=== PATIENT | male | born 1945 | race Caucasian/White ===

== ENCOUNTER 2019-07-03 17:05 | Inpatient (IN) | payer MEDICARE ==
[2019-07-03 18:06] LABS: Troponin I 1.119 ng/mL (< 0.028)
[2019-07-03] MEDS ORDERED: Fentanyl 100 MCG/2 ML VIAL ONE (19:22)
[2019-07-03] MEDS ORDERED: Ondansetron PF 4 MG/2 ML Vial IVP PRN (21:48)
[2019-07-03] MEDS ORDERED: Ondansetron ODT 4 MG TAB SL PRN (21:48)
[2019-07-03] MEDS ORDERED: Acetaminophen 325 MG TAB PO PRN (21:48)
[2019-07-03 21:52] LABS: CKMB 16.8 ng/mL (0-6.6)
[2019-07-03 23:01] VITALS: BMI 26.2
[2019-07-03] MEDS ORDERED: Sodium Chloride 0.9% 1,000 ML IV SCH (23:40)
[2019-07-03] MEDS ORDERED: HYDROcodone/Acetaminophen 5/325 mg Tablet PO PRN (23:40)
[2019-07-03] MEDS ORDERED: Nitroglycerin 0.4 MG TAB (25 Tab Bottle) SL PRN (23:40)
[2019-07-03] MEDS ORDERED: Famotidine 20 MG TAB PO SCH (23:40)
[2019-07-03] MEDS ORDERED: Morphine 2 MG/ML SYRINGE SLOW IVP PRN (23:40)
[2019-07-03] MEDS ORDERED: Atorvastatin Calcium 40 MG TAB PO SCH (23:45)
--- NOTE | 2019-07-04 01:34 | PDOC.EVN ---
Event Note - Event Note Event Note: RN called with troponin 4.6. 90 mg Lovenox already given at [place]
[2019-07-04] MEDS ORDERED: Enoxaparin Sodium 80 MG/0.8 ML SYRINGE SC SCH (01:45)
--- NOTE | 2019-07-04 02:21 | HP ---
PRIMARY CARE PHYSICIAN: Dr. Eastman. CHIEF COMPLAINT: Chest pain. HISTORY OF PRESENT ILLNESS: Mr. Mckeon is a very pleasant 73-year-old gentleman, who has a history of hypertension. He also has a history of hyperlipidemia. He says that in the past couple of days, he has been having problems with chest pains off and on as well as indigestion. He says that he was recently diagnosed with stones in the gallbladder and thought that his symptoms could be related to this. He had surgery scheduled for this past Sunday, but unfortunately, he had a family tragedy. His daughter in a motor vehicle accident and says everything had been "crazy" since then. He says that he was not able to make this appointment and since then, he has been having the chest pains off and on and said this time it was a bit different. He woke up with the pain. He says that it was like a tight feeling and radiated down both of his arms, which was different from before. He also noticed some mild dyspnea, but there was no nausea, no vomiting, no diaphoresis. He says he tried to drink some coffee to make it go away, but it did not, and as a result, he talked to his and they decided he should come to the hospital. He went to the emergency room in [place], where it was noted that his troponin was slightly elevated. They did do a CT scan, which was negative for PE. It did show that he has an abdominal aortic aneurysm, but it has been stable in appearance and he is being sent for further evaluation. REVIEW OF SYSTEMS: CONSTITUTIONAL: No fevers, no chills, no night sweats. No weight loss. HEENT: No headaches. No dizziness. No visual changes. No sore throat, rhinorrhea, neck pain, or adenopathy. PULMONARY: No hemoptysis. No cough. No wheezing. CARDIOVASCULAR: As per history of present illness with no PND. No orthopnea. No palpitations. GASTROINTESTINAL: He has been having some epigastric pain off and on radiating to his back and shoulder blades, but he attributes this to the cholelithiasis. GENITOURINARY: No urinary frequency or hematuria. No hesitancy. NEUROLOGIC: No focal weakness or numbness. No seizures. PSYCHIATRIC: No symptoms of anxiety or depression. SKIN AND INTEGUMENT: No skin changes. No rash. He does have some normal grief reaction. PAST MEDICAL HISTORY: Significant for hypertension, hyperlipidemia, history of colon cancer. PAST SURGICAL HISTORY: He has had an ileostomy and then ileostomy takedown. ALLERGIES: NO KNOWN DRUG ALLERGIES. SOCIAL HISTORY: He is . He is a full code. He is a former smoker, but quit at least 30 years ago. Occasionally drinks. FAMILY HISTORY: Significant for no history of any heart disease status. CURRENT MEDICATIONS: He said he recently took a Z-Rickey and is on a Medrol Dosepak and says he takes a little medicine for blood pressure, but it is not listed. PHYSICAL EXAMINATION: GENERAL: He is alert and oriented X4. He appears to be in no acute distress. He is well developed and well nourished. VITAL SIGNS: Blood pressure is 125/77, heart rate 66, respiratory rate of 18, and he is afebrile. HEENT: Pupils are equal, round, and reactive. Extraocular muscles are intact. His sclerae anicteric. Throat, no erythema, no exudates. NECK: No adenopathy. No bruits. LUNGS: Clear to auscultation. There is no wheezing, no rales, no rhonchi. CARDIOVASCULAR: He has a normal S1, S2. There is no S3 or S4. No murmurs, clicks, no rubs. ABDOMEN: Obese. It is soft. He did have some mild right upper quadrant tenderness, but there is no rebound, no guarding, no organomegaly. EXTREMITIES: There is no clubbing or cyanosis. No edema. No calf tenderness. No joint effusions. NEUROLOGIC: His cranial nerves are intact. His muscle strength is 5/5 in both his upper and lower extremities. SKIN AND INTEGUMENT: No skin changes. No rash. LABORATORY DATA AND IMAGING: EKG, it was from a rhythm strip from the EMS as I could not find the EKG from [place], but it was sinus rhythm, the rate was in the 70s. He had some T-wave inversions in II, and aVL. Otherwise, there was no other ST wave changes. Troponin was 1.1. The chemistry panel from [place] were also reviewed. Creatinine was slightly elevated. He had a CT angio of the chest, which was negative for pulmonary embolism. It did show an infrarenal abdominal aortic aneurysm measuring approximately 4 x 5 x 7 cm, which was reported to be unchanged. There was also noted bilateral renal artery stenosis. Otherwise, the other imaging is on CD. ASSESSMENT: This is a 73-year-old gentleman, who presents with; 1. Chest pain as well as pain radiating into his arms. He has an elevated troponin as well as some EKG changes, which are suspicious for a possible acute coronary syndrome or even crc-SA-bfidgabks myocardial infarction. He will be admitted to telemetry. We will continue to trend his cardiac enzymes, place him on aspirin, nitrates, and beta malgorzata if tolerated. Consult Cardiology. Get an echocardiogram. 2. Hypertension. Blood pressure is currently well controlled. We will have p.r.n. medications available as needed. 3. Cholelithiasis. At this point, the patient does not have any findings suggestive of acute cholecystitis. He does have some biliary colic, but the cardiac condition takes precedence and this will be deferred until acute coronary syndrome has been evaluated. Job ID: [id number]
[2019-07-04 05:36] LABS: #Lymphocytes 1.5 thou/uL (1.20-3.40); #Neutrophils 6.4 thou/uL (1.40-6.50); %Basophils 0.5 % (0.0-1.0); %Eosinophils 0.4 % (0.0-10.0); %Lymphocytes 16.6 % (21.0-51.0); %Monocytes 11.3 % (0.0-10.0); %Neutrophils 71.3 % (42.0-75.0); Hemoglobin 12.9 g/dL (14.0-18.0); Mean Corpuscular HGB CONC 33.7 g/dL (32.0-36.0); Mean Corpuscular Hemoglobin 30.2 pg (27.0-31.0); Mean Corpuscular Volume 89.6 fL (78.0-98.0); Mean Platelet Volume 7.2 fL (7.4-10.4); Platelet Count 278 thou/uL (130-400); RBC Distribution Width 11.7 % (11.5-14.5); Red Blood Cell (RBC) Count 4.26 mill/uL (4.70-6.10)
[2019-07-04 06:02] LABS: Anion Gap 12 mmol/L (10-20); BUN (Urea Nitrogen) 24 mg/dL (8.4-25.7); Calc. Creatinine Clearance 58 mL/min (70-130); Calcium 9.2 mg/dL (7.8-10.44); Carbon Dioxide 24 mmol/L (23-31); Cardiac Risk 5.3 (Less than 4.5); Chloride 106 mmol/L (98-107); Cholesterol 148 mg/dl (< 200 Desired); Estimated GFR-MDRD 47; Glucose 138 mg/dL (83-110); HDL Cholesterol 28 mg/dL (>60 Neg Risk); LDL Cholesterol, Calculated 87 mg/dL; Magnesium 2.2 mg/dL (1.6-2.6); Potassium 4.4 mmol/L (3.5-5.1); Sodium 138 mmol/L (136-145); Triglycerides 165 mg/dL (Less than 150)
[2019-07-04 06:13] LABS: Critical Call Chem Troponin I RESULT DECREASING
[2019-07-04] MEDS ORDERED: Midazolam HCl 2 mg/2 ml Vial ONE ×2 (06:14→13:24)
[2019-07-04] MEDS ORDERED: Fentanyl 100 MCG/2 ML VIAL ONE ×2 (06:15→13:24)
[2019-07-04 06:35] LABS: CKMB 13.7 ng/mL (0-6.6); Critical Call CKMB RESULT DECREASING
[2019-07-04] MEDS ORDERED: Aspirin 325 mg Enteric Coated Tablet PO SCH (09:00)
[2019-07-04] MEDS ORDERED: Atorvastatin Calcium 40 MG TAB PO SCH ×2 (09:00→21:00)
[2019-07-04] MEDS ORDERED: Iopamidol 370 76% 100 ML VIAL ONE (09:03)
[2019-07-04] MEDS ORDERED: Iopamidol 370 76% 50 ML VIAL FS ONE (09:03)
[2019-07-04] MEDS: Carvedilol 3.125 MG TAB PO SCH ×2 (10:42→17:43)
[2019-07-04] MEDS: Famotidine 20 MG TAB PO SCH ×2 (10:43→20:37)
[2019-07-04] MEDS ORDERED: Lidocaine 1% (PF) 30 ML VIAL ONE (12:55)
[2019-07-04] MEDS ORDERED: Heparin 10,000 UNITS/1 ML VIAL ONE (13:38)
[2019-07-04] MEDS ORDERED: TICAGRELOR 90 MG TABLET ONE (14:01)
[2019-07-04] MEDS ORDERED: Sodium Chloride 0.9% 500 ML IV SCH (14:15)
--- NOTE | 2019-07-04 14:47 | CON ---
DATE OF CONSULTATION: 07/04/2019 REASON FOR CONSULTATION: Non-STEMI. HISTORY OF PRESENT ILLNESS: Mr. Mckeon is a pleasant 73-year-old white gentleman, who comes to the hospital for chest pain. He was evaluated in the [place] [facility] and was found to have elevated troponin, so he was transferred over for further evaluation and care. He had a CT of the chest and a CT angiogram of the abdomen and pelvis and it showed that he has an infrarenal abdominal aortic aneurysm that apparently measures 4 x 7. This may be just mismeasured, but it is stable from previous evaluation. He did not have pulmonary embolus. Troponin has bumped up to 4 and is already coming back down. He is pain free at this time. He has been very stressed out as his daughter recently in a motor vehicle accident. PAST MEDICAL HISTORY: 1. Hypertension. 2. Hyperlipidemia. 3. Colon cancer, status post resection. SURGICAL HISTORY: Ileostomy and subsequent ileostomy takedown. SOCIAL HISTORY: Former smoker, quit 30 years ago. Social alcohol use. No drug use. REVIEW OF SYSTEMS: A 12-point review of systems was done and was all negative unless stated in the history of present illness. FAMILY HISTORY: Noncontributory. OUTPATIENT MEDICATIONS: 1. Methylprednisolone. 2. Ceftin. 3. Aspirin 81 a day. 4. Zantac 150 b.i.d. 5. Lisinopril 10 mg at bedtime. 6. Lipitor 40 mg a day. ALLERGIES: NO KNOWN DRUG ALLERGIES. PHYSICAL EXAMINATION: VITAL SIGNS: Temperature 98.5, pulse 60, respiratory rate 16, saturating 96% on room air, blood pressure 116/66. GENERAL: Awake, alert, and oriented x3. No distress. HEENT: Normocephalic and atraumatic. NECK: Supple. LUNGS: Clear. CARDIOVASCULAR: S1 and S2. No S3 or S4. No murmurs. ABDOMEN: Soft. Positive bowel sounds. EXTREMITIES: No edema. SKIN: Warm and dry. LABORATORY WORK: Reviewed. CBC, coags, and CMP were reviewed. Creatinine 1.48. Troponin went from 1.1 to 3.9, to 4.6, down to 2.7 now. CK-MB max at 16.8. EKG was reviewed. CT of the abdomen was reviewed. ASSESSMENT AND PLAN: 1. [id number]-[id number] myocardial infarction. 2. Abdominal aortic aneurysm, stable. 3. Hypertension. 4. Hyperlipidemia. PLAN: We will further risk stratify with heart catheterization. We spoke at length about the risks and benefits of the procedure. Risks included, but not limited to stroke, [place], , bleeding, need for blood transfusion, limb loss, organ loss, need for emergent bypass surgery. He understands and verbalized understanding of this and agrees to proceed. Bare metal stents if needed, given his proximal need for either an aortic aneurysm repair and also needing a cholecystectomy pretty soon. Job ID: [id number]
--- NOTE | 2019-07-04 17:38 | PDOC.HOSPP ---
- Subjective Encounter Date: 07/04/19 Encounter Time: 10:30 Subjective: Mr. Mckeon was seen today in follow-up of NSTEMI. He is feeling better today. He denies chest or abdominal pain. - Objective Vital Signs & Weight: Vital Signs (12 hours) Temp Pulse Resp BP Pulse Ox 07/04/19 12:00 98.5 F 60 16 116/66 96 07/04/19 10:43 95 07/04/19 07:00 99.4 F 60 14 113/67 95 Weight Weight 199 lb 3.2 oz Result Diagrams: 07/04/19 05:14 07/04/19 05:14 Hospitalist ROS - Medication Medications: Active Medications Generic Name Dose Route Start Last Admin Trade Name Freq PRN Reason Stop Dose Admin Carvedilol 3.125 mg 07/04/19 08:00 07/04/19 10:42 Coreg PO 3.125 mg BID-WM FELIPE Administration Famotidine 20 mg 07/04/19 09:00 07/04/19 10:43 Pepcid PO 20 mg BID FELIPE Administration Sodium Chloride 1,000 mls @ 50 mls/hr 07/03/19 23:40 07/04/19 02:06 Normal Saline 0.9% IV 1,000 mls .Q20H FELIPE Administration - Exam Eye: PERRL, anicteric sclera Heart: RRR, no murmur, no gallops, no rubs, normal peripheral pulses Respiratory: CTAB, no wheezes, no rales, no ronchi, normal chest expansion, no tachypnea, normal percussion Gastrointestinal: soft, non-tender, non-distended, normal bowel sounds, no palpable masses, no hepatomegaly, no splenomegaly Extremities: no cyanosis, no clubbing, no edema Skin: normal turgor, no lesions, no rashes Neurological: no focal deficits Hosp A/P (1) NSTEMI (non-ST elevated myocardial infarction) Code(s): I21.4 - NON-ST ELEVATION (NSTEMI) MYOCARDIAL INFARCTION Status: Acute (2) Hypertension Code(s): I10 - ESSENTIAL (PRIMARY) HYPERTENSION Status: Acute (3) Cholelithiasis Code(s): K80.20 - CALCULUS OF GALLBLADDER W/O CHOLECYSTITIS W/O OBSTRUCTION Status: Chronic Qualifiers: Cholecystitis presence: without cholecystitis - Plan * NSTEMI- continue aspirin , statin, and low dose Beta-blockers * Await Cardiology input * Cholelithiasis- timing of surgery will depend on the cardiac cath findings * HTN- blood pressure is controlled * AAA- sable
[2019-07-04] MEDS: Acetaminophen 325 MG TAB PO PRN ×2 (17:43→23:39)
[2019-07-04] MEDS: TICAGRELOR 90 MG TABLET PO SCH (20:37)
[2019-07-04] MEDS ORDERED: Lisinopril 10 MG TAB PO SCH (21:00)
[2019-07-05 05:50] LABS: #Eosinphils 0.1 thou/uL (0.0-0.7); #Lymphocytes 1.5 thou/uL (1.20-3.40); #Neutrophils 6.7 thou/uL (1.40-6.50); %Basophils 0.3 % (0.0-1.0); %Eosinophils 0.7 % (0.0-10.0); %Lymphocytes 15.9 % (21.0-51.0); %Monocytes 10.6 % (0.0-10.0); %Neutrophils 72.4 % (42.0-75.0); Hemoglobin 13.9 g/dL (14.0-18.0); Mean Corpuscular HGB CONC 33.9 g/dL (32.0-36.0); Mean Corpuscular Hemoglobin 30.1 pg (27.0-31.0); Mean Corpuscular Volume 88.7 fL (78.0-98.0); Mean Platelet Volume 7.1 fL (7.4-10.4); Platelet Count 278 thou/uL (130-400); RBC Distribution Width 11.8 % (11.5-14.5); White Blood Cell (WBC) Count 9.2 thou/uL (4.8-10.8)
[2019-07-05 06:32] LABS: ALT (SGPT) 16 U/L (8-55); AST (SGOT) 22 U/L (5-34); Albumin 4.1 g/dL (3.4-4.8); Alkaline Phosphatase 80 U/L (40-110); Anion Gap 12 mmol/L (10-20); BUN (Urea Nitrogen) 22 mg/dL (8.4-25.7); Bilirubin, Total 0.7 mg/dL (0.2-1.2); Calc. Creatinine Clearance 64 mL/min (70-130); Calcium 9.3 mg/dL (7.8-10.44); Carbon Dioxide 24 mmol/L (23-31); Chloride 108 mmol/L (98-107); Estimated GFR-MDRD 52; Globulin 2.7 g/dL (2.4-3.5); Glucose 124 mg/dL (83-110); Potassium 4.2 mmol/L (3.5-5.1); Protein, Total 6.8 g/dL (5.8-8.1); Sodium 140 mmol/L (136-145)
[2019-07-05] MEDS: Famotidine 20 MG TAB PO SCH (08:52)
[2019-07-05] MEDS: Carvedilol 3.125 MG TAB PO SCH ×2 (08:52→16:55)
[2019-07-05] MEDS: TICAGRELOR 90 MG TABLET PO SCH (08:52)
[2019-07-05] MEDS ORDERED: Aspirin Chewable 81 MG TAB PO SCH (09:00)
[2019-07-05] MEDS ORDERED: Cefuroxime Axetil 250 MG TAB PO SCH (09:00)
[2019-07-05 16:00] VITALS: BP 148/82; TEMP 98.8
--- NOTE | 2019-07-05 16:54 | PDOC.HOSPP ---
- Subjective Encounter Date: 07/05/19 Encounter Time: 16:52 Subjective: Mr. Mckeon was seen today in follow-up of NSTEMI. He does not have any complaints today. - Objective Vital Signs & Weight: Vital Signs (12 hours) Temp Pulse Resp BP Pulse Ox 07/05/19 15:59 98.8 F 62 17 148/82 H 96 07/05/19 12:00 98.6 F 60 16 142/80 H 97 07/05/19 08:00 98.6 F 58 L 17 138/86 99 Weight Weight 199 lb 3.2 oz I&O: 07/04/19 07/05/19 07/06/19 06:59 06:59 06:59 Intake Total 450 Output Total 600 Balance -150 Result Diagrams: 07/05/19 05:11 07/05/19 05:11 Hospitalist ROS - Medication Medications: Active Medications Generic Name Dose Route Start Last Admin Trade Name Freq PRN Reason Stop Dose Admin Acetaminophen 650 mg 07/03/19 23:40 07/04/19 23:39 Tylenol PO 650 mg Q4H PRN Administration Headache/Fever/Mild Pain (1-3) Aspirin 81 mg 07/05/19 09:00 07/05/19 08:52 Aspirin Chewable PO 81 mg DAILY FELIPE Administration Atorvastatin Calcium 40 mg 07/04/19 21:00 07/04/19 20:39 Lipitor PO 40 mg HS FELIPE Administration Carvedilol 3.125 mg 07/04/19 08:00 07/05/19 08:52 Coreg PO 3.125 mg BID-WM FELIPE Administration Cefuroxime Axetil 250 mg 07/05/19 09:00 07/05/19 10:15 Ceftin PO 250 mg BID FELIPE Administration Famotidine 20 mg 07/04/19 09:00 07/05/19 08:52 Pepcid PO 20 mg BID FELIPE Administration Lisinopril 10 mg 07/04/19 21:00 07/04/19 20:37 Zestril PO 10 mg HS FELIPE Administration Sodium Chloride 10 ml 07/04/19 21:00 07/05/19 08:53 Flush - Normal Saline IVF 10 ml Q12HR FELIPE Administration Ticagrelor 90 mg 07/04/19 21:00 07/05/19 08:52 Brilinta PO 90 mg BID FELIPE Administration - Exam Eye: PERRL, anicteric sclera Heart: RRR, no murmur, no gallops, no rubs, normal peripheral pulses Respiratory: CTAB, no wheezes, no rales, no ronchi, normal chest expansion, no tachypnea, normal percussion Gastrointestinal: soft, non-tender, non-distended, normal bowel sounds, no palpable masses, no hepatomegaly Extremities: no cyanosis, no clubbing, no edema Hosp A/P (1) NSTEMI (non-ST elevated myocardial infarction) Code(s): I21.4 - NON-ST ELEVATION (NSTEMI) MYOCARDIAL INFARCTION Status: Acute (2) Hypertension Code(s): I10 - ESSENTIAL (PRIMARY) HYPERTENSION Status: Acute (3) Cholelithiasis Code(s): K80.20 - CALCULUS OF GALLBLADDER W/O CHOLECYSTITIS W/O OBSTRUCTION Status: Chronic Qualifiers: Cholecystitis presence: without cholecystitis - Plan * NSTEMI- continue aspirin , statin, and low dose Beta-blockers * Cath results noted, and he is s/p BMS placement to the RCA * Stable for discharge home ( discussed with Dr. Chopra)
--- NOTE | 2019-07-05 20:20 | PDOC.CPN ---
- Subjective Date: 07/05/19 Time: 14:00 Interval history: He is doing well. No chest pain. Tolerating all meds. - Review of Systems General: denies: fever/chills, weight/appetite/sleep changes, night sweats, fatigue Respiratory: denies: cough, congestion, shortness of breath, exercise intolerance Cardiovascular: denies: chest pain, palpitation, edema, paroxysmal nocturnal dyspnea, orthopnea Gastrointestinal: denies: nausea, vomiting, diarrhea, constipation, abd pain, GI bleeding Musculoskeletal: denies: pain, tenderness, stiffness, swelling, arthritis/ arthralgias Neurological: denies: numbness, syncope, seizure, weakness - Objective Allergies/Adverse Reactions: Allergies Allergy/AdvReac Type Severity Reaction Status Date / Time No Known Allergies Allergy Unverified 07/03/19 21:47 Vital Signs & Weight: Vital Signs Temp Pulse Resp BP Pulse Ox 07/05/19 15:59 98.8 F 62 17 148/82 H 96 07/05/19 12:00 98.6 F 60 16 142/80 H 97 Weight 199 lb 3.2 oz - Physical Exam General: alert & oriented x3, no apparent distress HEENT: mucus membranes moist, normocephaly Neck: supple neck, midline trachea Cardiac: regular rate and rhythm, no murmur Lungs: clear to auscultation, no wheeze, rales, rhonchi Neuro: grossly intact, coordination normal Abdomen: active bowel sounds, soft, non-tender Skin: clear Musculoskeletal: normal range of motion, no pain - Labs Result Diagrams: 07/05/19 05:11 07/05/19 05:11 Troponin/CKMB CK-MB (CK-2) 13.7 ng/mL (0-6.6) H* 07/04/19 05:14 Troponin I 2.730 ng/mL (< 0.028) H* 07/04/19 05:14 - Telemetry Sinus rhythms and dysrhythmias: sinus rhythm - Assessment/Plan Assessment/Plan: 1. NSTEMI 2. CAD 3. S/P BMS to RCA 4. Residual sever diffuse LAD disease from mid vessel to distal. 5. Ischemic CM EF at 45% PLAN: - May discharge home - Follow up in 1 month - I spent 45 minutes in the room counselling pt and family on cardiac rehab, diet, medications and follow up.
--- NOTE | 2019-07-06 04:07 | DIS ---
DATE OF ADMISSION: 07/03/2019 DATE OF DISCHARGE: 07/05/2019 DISCHARGE DISPOSITION: Home. PRIMARY DISCHARGE DIAGNOSES: 1. Vmv-[id number]-rpyjnkv elevated myocardial infarction, type 1. 2. Dyslipidemia. 3. Cholelithiasis. 4. Hypertension. DISCHARGE MEDICATIONS: Include; 1. Aspirin 81 mg daily. 2. Lipitor 40 mg at bedtime. 3. Cefuroxime 250 mg twice a day. 4. Lisinopril 10 mg at bedtime. 5. Zantac 150 mg twice daily. 6. Carvedilol 3.125 mg twice daily. 7. Brilinta 90 mg twice a day. CODE STATUS: Full code. ALLERGIES: NO KNOWN DRUG ALLERGIES. PROCEDURES DONE DURING ADMISSION: The patient had a cardiac catheterization in which the patient was found to have severe mid right coronary artery disease and there was successful deployment of two bare metal stents. There was subtotal occlusion of the LAD, but it filled with collaterals distally. The patient also had an echocardiogram, in which the ejection fraction was estimated at 45% to 50%. There was grade 1/3 diastolic dysfunction and inferior lateral hypokinesis. HOSPITAL COURSE: Mr. Mckeon is a pleasant 73-year-old gentleman, who was admitted to the hospital after developing chest pain, the full details of which are outlined in the history and physical. The patient was admitted for concerns for acute coronary syndrome. Cardiology was consulted and he underwent cardiac catheterization. Please note that his troponins did go up to 4.6. He therefore had suffered a non ST-segment elevated RI type 1. He underwent cardiac catheterization and was found to have significant right coronary disease, which was stented with a bare metal stent. He also was found to have LAD disease, but it was auto-bypassed with collaterals. He has a history of cholelithiasis and the plan would be to have a cholecystectomy, and for this reason, the bare metal stents were placed as well as history of having an abdominal aortic aneurysm, which was stable, but could require surgery in the future as well. He has been instructed to try to adhere to a low fat diet to hopefully continue quiescence of his gallbladder disease and he will follow up with Dr. Chopra in the outpatient to discuss the timing of when the gallbladder surgery would be best undertaken. Job ID: [id number]
--- NOTE | 2019-07-06 17:19 | EKG ---
Test Reason : Blood Pressure : / mmHG Vent. Rate : 061 BPM Atrial Rate : 061 BPM P-R Int : 144 ms QRS Dur : 104 ms QT Int : 438 ms P-R-T Axes : 035 -27 -49 degrees QTc Int : 440 ms Normal sinus rhythm Inferior infarct , age undetermined Abnormal ECG Confirmed by HANNAH PONCE (2) on 07/06/2019 5:19:01 PM Referred By: ANIKA Confirmed By:HANNAH PONCE
--- NOTE | 2019-07-06 17:25 | EKG ---
Test Reason : POST STENTS X2-RCA Blood Pressure : / mmHG Vent. Rate : 061 BPM Atrial Rate : 061 BPM P-R Int : 144 ms QRS Dur : 112 ms QT Int : 428 ms P-R-T Axes : -09 -24 -55 degrees QTc Int : 430 ms Normal sinus rhythm Inferior infarct (cited on or before 04-JUL-2019) Abnormal ECG When compared with ECG of 04-JUL-2019 06:52, (Unconfirmed) No significant change was found Confirmed by HANNAH PONCE (2) on 07/06/2019 5:25:06 PM Referred By: MAR Confirmed By:HANNAH PONCE
== END 2019-07-05 17:37 | disposition home or self-care (01) | DRG 249 ==
LOC: ERS 17:05 → 2NO 20:17
PROVIDERS: ADMIT Internal Medicine; ATTEND Internal Medicine
PROC: 02703EZ Dilation of Coronary Artery, One Artery with Two Intraluminal Devices, Percutaneous Approach (ICD-10-PCS; principal; 2019-07-04)
PROC: B2111ZZ Fluoroscopy of Multiple Coronary Arteries using Low Osmolar Contrast (ICD-10-PCS; 2019-07-04)
DX: I21.4 Non-ST elevation (NSTEMI) myocardial infarction (principal); I25.10 Atherosclerotic heart disease of native coronary artery without angina pectoris; E78.5 Hyperlipidemia, unspecified; I10 Essential (primary) hypertension; K80.20 Calculus of gallbladder without cholecystitis without obstruction; I71.4 Abdominal aortic aneurysm, without rupture; I25.5 Ischemic cardiomyopathy; Z85.038 Personal history of other malignant neoplasm of large intestine; Z87.891 Personal history of nicotine dependence; Z79.82 Long term (current) use of aspirin
CPT/HCPCS: 36415; 80048; 80053; 80061; 82553; 83735; 84484; 85025; 85347; 92928; 93005; 93010; 93306; 93454; 96374; 99152; 99153; C1725; C1769; C1876; C1887; J1644; J1650; J2001; J2250; J3010

== ENCOUNTER 2022-03-08 06:07 | Inpatient (IN) | payer MEDICARE, OTHER ==
[2022-03-08] MEDS ORDERED: EPINEPHrine 1 MG/ML AMP ONE (06:13)
[2022-03-08] MEDS ORDERED: Bupivacaine PF 0.5% 30 ML VIAL ONE (06:13)
[2022-03-08] MEDS ORDERED: Heparin 10,000 UNITS/ 10 ML VIAL ONE (06:13)
[2022-03-08] MEDS ORDERED: Dexamethasone 4 mg/ml Vial ONE (06:13)
[2022-03-08] MEDS ORDERED: Protamine Sulfate 50 MG/5 ML VIAL ONE (06:13)
[2022-03-08] MEDS ORDERED: Sodium Chloride 0.9% 100 ML ONE (06:33)
[2022-03-08] MEDS ORDERED: Lidocaine 1% MPF 2 ML VIAL ONE (06:33)
[2022-03-08] MEDS ORDERED: CEFAZOLIN 2 GM VIAL ONE (06:33)
[2022-03-08 06:34] LABS: #Basophils 0.1 thou/uL (0.0-0.2); #Eosinphils 0.3 thou/uL (0.0-0.7); #Lymphocytes 2.1 thou/uL (1.20-3.40); #Monocytes 1.1 thou/uL (0.11-0.59); #Neutrophils 7.2 thou/uL (1.40-6.50); %Basophils 0.6 % (0.0-1.0); %Eosinophils 2.5 % (0.0-10.0); %Lymphocytes 19.2 % (21.0-51.0); %Monocytes 10.1 % (0.0-10.0); %Neutrophils 67.5 % (42.0-75.0); Hemoglobin 14.6 g/dL (14.0-18.0); Mean Corpuscular HGB CONC 32.1 g/dL (32.0-36.0); Mean Corpuscular Hemoglobin 30.3 pg (27.0-31.0); Mean Corpuscular Volume 94.4 fL (78.0-98.0); Mean Platelet Volume 7.1 fL (7.4-10.4); Platelet Count 213 thou/uL (130-400); RBC Distribution Width 12.1 % (11.5-14.5); Red Blood Cell (RBC) Count 4.84 mill/uL (4.70-6.10); White Blood Cell (WBC) Count 10.7 thou/uL (4.8-10.8)
[2022-03-08] MEDS ORDERED: Phenylephrine 10 MG/ML VIAL ONE (06:34)
[2022-03-08] MEDS ORDERED: fentaNYL Citrate/PF 100 MCG/2 ML SYRINGE ONE (06:34)
[2022-03-08 07:06] LABS: Anion Gap 12 mmol/L (10-20); BUN (Urea Nitrogen) 31 mg/dL (8.4-25.7); Calc. Creatinine Clearance 39 mL/min (70-130); Calcium 9.3 mg/dL (7.8-10.44); Carbon Dioxide 27 mmol/L (23-31); Chloride 105 mmol/L (98-107); Glucose 125 mg/dL (83-110); Potassium 4.3 mmol/L (3.5-5.1); Sodium 140 mmol/L (136-145)
[2022-03-08] MEDS ORDERED: PROPOFOL 200 MG/20 ML VIAL ONE (07:35)
[2022-03-08] MEDS ORDERED: Ketorolac Tromethamine 30 MG/ML VIAL ONE (07:35)
[2022-03-08] MEDS ORDERED: Glycopyrrolate 0.2 MG/ML 5 ML SYRINGE ONE (07:35)
[2022-03-08] MEDS ORDERED: Rocuronium Bromide 10 MG/ML (10ML VIAL) ONE (07:35)
[2022-03-08] MEDS ORDERED: Dexamethasone 20 MG/5 ML VIAL ONE (07:35)
[2022-03-08] MEDS ORDERED: Ondansetron PF 4 MG/2 ML Vial ONE (07:35)
[2022-03-08] MEDS ORDERED: Lidocaine 1% PF 5 ML VIAL ONE (07:35)
[2022-03-08] MEDS ORDERED: Labetalol HCl 100 MG/20 ML VIAL ONE (07:35)
[2022-03-08] MEDS ORDERED: Promethazine HCl 25 MG/ML VIAL IM PRN ×2 (07:54→09:18)
[2022-03-08] MEDS ORDERED: Promethazine HCl 25 MG/ML VIAL IVPB PRN (07:54)
[2022-03-08] MEDS ORDERED: Ondansetron HCl/PF 4 MG/2 ML Vial IVP PRN (07:54)
[2022-03-08] MEDS ORDERED: traMADol HCl 50 MG TAB PO PRN ×2 (09:18)
[2022-03-08] MEDS ORDERED: ceFAZolin 2 GM/Dextrose 50 ML 2 GM in Premix Bag 1 BAG IVPB SCH (09:18)
[2022-03-08] MEDS ORDERED: Fentanyl 100 MCG/2 ML VIAL SLOW IVP PRN ×2 (09:18)
[2022-03-08] MEDS ORDERED: hydrALAZINE 20 MG/ML VIAL SLOW IVP PRN (09:18)
[2022-03-08] MEDS ORDERED: Acetaminophen 325 MG TAB PO PRN (09:18)
[2022-03-08] MEDS ORDERED: Ondansetron PF 4 MG/2 ML Vial IVP PRN (09:18)
[2022-03-08] MEDS ORDERED: hydrALAZINE 20 MG/ML VIAL ONE (09:32)
[2022-03-08] MEDS ORDERED: Carvedilol 3.125 MG TAB PO SCH (11:45)
[2022-03-08] MEDS: Sodium Chloride 0.9% 1,000 ML IV SCH ×2 (11:52→19:00)
[2022-03-08 12:07] VITALS: BMI 12.0
[2022-03-08] MEDS: CEFAZOLIN 2 GM in Sodium Chloride 0.9% 100 ML IVPB SCH ×2 (13:07→21:26)
[2022-03-08] MEDS: Carvedilol 3.125 MG TAB PO SCH (20:41)
[2022-03-08 20:42] VITALS: BP 138/73
[2022-03-08] MEDS: Famotidine 20 MG TAB PO SCH (20:42)
[2022-03-08] MEDS ORDERED: Amlodipine 5 MG TAB PO SCH (21:00)
[2022-03-08] MEDS ORDERED: Atorvastatin Calcium 20 MG TAB PO SCH (21:00)
[2022-03-09 03:28] LABS: #Basophils 0.1 thou/uL (0.0-0.2); #Lymphocytes 1.5 thou/uL (1.20-3.40); #Monocytes 1.1 thou/uL (0.11-0.59); #Neutrophils 10.1 thou/uL (1.40-6.50); %Basophils 0.5 % (0.0-1.0); %Lymphocytes 11.8 % (21.0-51.0); %Monocytes 8.8 % (0.0-10.0); %Neutrophils 78.8 % (42.0-75.0); Hemoglobin 12.8 g/dL (14.0-18.0); Mean Corpuscular HGB CONC 33.9 g/dL (32.0-36.0); Mean Corpuscular Volume 91.4 fL (78.0-98.0); Mean Platelet Volume 7.2 fL (7.4-10.4); Platelet Count 185 thou/uL (130-400); RBC Distribution Width 12.4 % (11.5-14.5); Red Blood Cell (RBC) Count 4.14 mill/uL (4.70-6.10); White Blood Cell (WBC) Count 12.8 thou/uL (4.8-10.8)
[2022-03-09 03:44] LABS: Anion Gap 13 mmol/L (10-20); BUN (Urea Nitrogen) 25 mg/dL (8.4-25.7); Calc. Creatinine Clearance 20 mL/min (70-130); Calcium 8.6 mg/dL (7.8-10.44); Carbon Dioxide 22 mmol/L (23-31); Chloride 108 mmol/L (98-107); Glucose 146 mg/dL (83-110); Potassium 4.1 mmol/L (3.5-5.1); Sodium 139 mmol/L (136-145)
[2022-03-09] MEDS: CEFAZOLIN 2 GM in Sodium Chloride 0.9% 100 ML IVPB SCH (05:51)
[2022-03-09] MEDS: Sodium Chloride 0.9% 1,000 ML IV SCH (07:24)
[2022-03-09 07:37] VITALS: TEMP 97.5
[2022-03-09] MEDS: Famotidine 20 MG TAB PO SCH (08:21)
[2022-03-09] MEDS: Carvedilol 3.125 MG TAB PO SCH (08:21)
[2022-03-09] MEDS ORDERED: Amlodipine 5 MG TAB PO SCH (09:00)
[2022-03-09] MEDS ORDERED: Clopidogrel Bisulfate 75 MG TAB PO SCH (09:00)
[2022-03-09] MEDS ORDERED: Atorvastatin Calcium 20 MG TAB PO SCH (09:00)
[2022-03-09] MEDS ORDERED: Aspirin 81 mg Enteric Coated Tablet PO SCH (09:00)
[2022-03-10] MEDS ORDERED: Famotidine 20 MG TAB PO SCH (09:00)
== END 2022-03-09 10:40 | disposition home or self-care (01) | DRG 269 ==
LOC: SURG A 06:07 → CCU 11:30
PROVIDERS: ADMIT Thoracic Surgery (Cardiothoracic Vascular Surgery); ATTEND Thoracic Surgery (Cardiothoracic Vascular Surgery)
PROC: 04V03DZ Restriction of Abdominal Aorta with Intraluminal Device, Percutaneous Approach (ICD-10-PCS; principal; 2022-03-08)
DX: I71.4 Abdominal aortic aneurysm, without rupture (principal); I10 Essential (primary) hypertension; E78.2 Mixed hyperlipidemia; K22.70 Barrett's esophagus without dysplasia; Z79.82 Long term (current) use of aspirin; Z79.899 Other long term (current) drug therapy; Z79.01 Long term (current) use of anticoagulants
CPT/HCPCS: 36415; 76000; 80048; 85025; 86850; 86900; 86901; C1726; C1776; C1874; C1894; J0171; J0360; J1100; J1642; J1644; J1885; J2370; J2405; J2704; J2720; J3490; J7050; S0020

== ENCOUNTER 2022-05-29 11:51 | Outpatient (CLI) | payer MEDICARE, OTHER ==
[~2022-05-29 11:51] MED LIST: Iopamidol 370 76% 100 ML VIAL ONE
== END 2022-05-29 11:52 | disposition home or self-care (01) ==
LOC: CT 11:51
PROVIDERS: ATTEND Thoracic Surgery (Cardiothoracic Vascular Surgery)
DX: I71.4 Abdominal aortic aneurysm, without rupture (principal); I70.1 Atherosclerosis of renal artery; K80.20 Calculus of gallbladder without cholecystitis without obstruction; K59.00 Constipation, unspecified; M85.80 Other specified disorders of bone density and structure, unspecified site; I72.9 Aneurysm of unspecified site; Z95.828 Presence of other vascular implants and grafts
CPT/HCPCS: 74174; 82565; Q9967

== ENCOUNTER 2022-07-31 15:39 | Inpatient (IN) | payer MEDICARE, OTHER ==
[2022-07-31 17:16] LABS: #Lymphocytes 1.6 thou/uL (1.20-3.40); #Monocytes 1.8 thou/uL (0.11-0.59); #Neutrophils 8.6 thou/uL (1.40-6.50); %Basophils 0.1 % (0.0-1.0); %Eosinophils 0.4 % (0.0-10.0); %Monocytes 14.7 % (0.0-10.0); %Neutrophils 71.9 % (42.0-75.0); Hemoglobin 14.9 g/dL (14.0-18.0); Mean Corpuscular HGB CONC 32.4 g/dL (32.0-36.0); Mean Corpuscular Hemoglobin 29.6 pg (27.0-31.0); Mean Corpuscular Volume 91.2 fL (78.0-98.0); Mean Platelet Volume 7.7 fL (7.4-10.4); Platelet Count 153 thou/uL (130-400); RBC Distribution Width 12.6 % (11.5-14.5); Red Blood Cell (RBC) Count 5.05 mill/uL (4.70-6.10); White Blood Cell (WBC) Count 11.9 thou/uL (4.8-10.8)
[2022-07-31 17:36] LABS: ALT (SGPT) 19 U/L (8-55); AST (SGOT) 20 U/L (5-34); Albumin 4.1 g/dL (3.4-4.8); Alkaline Phosphatase 94 U/L (40-110); Anion Gap 15 mmol/L (10-20); BUN (Urea Nitrogen) 27 mg/dL (8.4-25.7); Bilirubin, Total 0.9 mg/dL (0.2-1.2); Calc. Creatinine Clearance 0 mL/min (70-130); Calcium 8.8 mg/dL (7.8-10.44); Carbon Dioxide 25 mmol/L (23-31); Chloride 101 mmol/L (98-107); Estimated GFR 34; Globulin 3.1 g/dL (2.4-3.5); Glucose 123 mg/dL (83-110); Lipase 16 U/L (8-78); Protein, Total 7.2 g/dL (5.8-8.1); Sodium 137 mmol/L (136-145)
[2022-07-31 18:30] LABS: CKMB 1.4 ng/mL (0-6.6)
[2022-07-31] MEDS ORDERED: Piperacillin/Tazobactam 3.375 GM VIAL ONE (19:14)
[2022-07-31] MEDS ORDERED: Acetaminophen 500 MG TAB ONE (19:24)
[2022-07-31] MEDS ORDERED: HYDROmorphone 0.5 MG/0.5 ML SYRINGE ONE (19:28)
[2022-07-31] MEDS ORDERED: Acetaminophen 650 MG Suppository PR PRN (20:53)
[2022-07-31] MEDS ORDERED: Ondansetron PF 4 MG/2 ML Vial IVP PRN (20:53)
[2022-07-31] MEDS ORDERED: Ondansetron ODT 4 MG TAB PO PRN (20:53)
[2022-07-31] MEDS ORDERED: Acetaminophen 325 MG TAB PO PRN (20:53)
[2022-07-31] MEDS ORDERED: Morphine 4 MG/ML VIAL SLOW IVP PRN (20:56)
[2022-07-31 21:03] LABS: SARS-CoV-2 NAA Rapid Test DETECTED (NotDetected)
[2022-07-31] MEDS ORDERED: Albuterol 200 PUFF (6.7GM INHALER) INH PRN (21:35)
[2022-07-31] MEDS ORDERED: Benzonatate 100 MG CAP PO PRN (21:35)
[2022-07-31 21:50] LABS: Troponin I 0.043 ng/mL (< 0.028)
[2022-07-31 22:54] VITALS: BMI 24.9
[2022-07-31] MEDS ORDERED: Amlodipine 5 MG TAB PO SCH (23:30)
[2022-07-31] MEDS ORDERED: Carvedilol 3.125 MG TAB PO SCH (23:30)
[2022-07-31] MEDS ORDERED: Atorvastatin Calcium 20 MG TAB PO SCH (23:30)
[2022-07-31] MEDS ORDERED: hydrALAZINE 25 MG TAB PO SCH (23:30)
[2022-07-31] MEDS ORDERED: Famotidine 20 MG TAB PO SCH (23:30)
[2022-07-31] MEDS ORDERED: Piperacillin/Tazobactam 3.375 GM in Sodium Chloride 0.9% 100 ML IVPB SCH (23:59)
[2022-08-01 02:18] LABS: Troponin I 0.041 ng/mL (< 0.028)
[2022-08-01] MEDS: Carvedilol 3.125 MG TAB PO SCH ×2 (05:46→17:15)
[2022-08-01 06:37] LABS: #Eosinphils 0.1 thou/uL (0.0-0.7); #Lymphocytes 2.1 thou/uL (1.20-3.40); #Monocytes 1.1 thou/uL (0.11-0.59); #Neutrophils 8.4 thou/uL (1.40-6.50); %Basophils 0.3 % (0.0-1.0); %Eosinophils 0.8 % (0.0-10.0); %Lymphocytes 17.7 % (21.0-51.0); %Monocytes 9.2 % (0.0-10.0); Hemoglobin 13.7 g/dL (14.0-18.0); Mean Corpuscular HGB CONC 33.3 g/dL (32.0-36.0); Mean Corpuscular Hemoglobin 30.7 pg (27.0-31.0); Mean Corpuscular Volume 92.2 fl (78.0-98.0); Mean Platelet Volume 7.9 fL (7.4-10.4); Platelet Count 146 thou/uL (130-400); RBC Distribution Width 12.6 % (11.5-14.5); Red Blood Cell (RBC) Count 4.47 mill/uL (4.70-6.10); White Blood Cell (WBC) Count 11.7 thou/uL (4.8-10.8)
[2022-08-01 07:00] LABS: Anion Gap 15 mmol/L (10-20); BUN (Urea Nitrogen) 27 mg/dL (8.4-25.7); Calc. Creatinine Clearance 37 mL/min (70-130); Calcium 8.7 mg/dL (7.8-10.44); Carbon Dioxide 22 mmol/L (23-31); Chloride 102 mmol/L (98-107); Estimated GFR 34; Glucose 119 mg/dL (83-110); Potassium 3.7 mmol/L (3.5-5.1); Sodium 135 mmol/L (136-145)
[2022-08-01 07:33] LABS: Bacteria/HPF None Seen HPF (None Seen); Bilirubin Negative (Negative); Blood, Urine Negative (Negative); Clarity Clear (Clear); Glucose, Urine (Dipstick) Normal (Negative); Ketone, Urine Trace mg/dL (Negative); Leukocyte Negative Leu/uL (Negative); Nitrite Negative (Negative); Protein, Urine (Dipstick) 50 mg/dL (Neg-Trace); RBC/HPF 0-3 HPF (0-3); Specific Gravity, Urine 1.023 (1.002-1.036); Squamous Epithelial None Seen HPF (0-3); Urobilinogen Normal mg/dL (Less than 2); WBC/HPF 0-3 HPF (0-3)
[2022-08-01] MEDS: Enoxaparin Sodium 40 MG/0.4 ML SYRINGE SC SCH (07:33)
[2022-08-01 07:49] LABS: ALT (SGPT) 16 U/L (8-55); AST (SGOT) 22 U/L (5-34); Albumin 3.9 g/dL (3.4-4.8); Alkaline Phosphatase 92 U/L (40-110); Bilirubin, Direct 0.5 mg/dL (0.1-0.3); Bilirubin, Total 1.1 mg/dL (0.2-1.2); Lipase 22 U/L (8-78); Protein, Total 6.9 g/dL (5.8-8.1)
[2022-08-01] MEDS ORDERED: hydrALAZINE 25 MG TAB PO SCH (09:00)
[2022-08-01] MEDS ORDERED: FLU VACC QS2022-23(65YR UP)/PF 240 MCG/0.7 ML SYRINGE IM ONE (09:00)
[2022-08-01] MEDS ORDERED: Ergocalciferol 1.25 MG(50,000 UNITS) CAP PO SCH (09:00)
[2022-08-01] MEDS ORDERED: Ascorbic Acid 500 mg Chewable Tablet PO SCH (09:00)
[2022-08-01] MEDS ORDERED: Clopidogrel Bisulfate 75 MG TAB PO SCH (09:00)
[2022-08-01] MEDS: Aspirin Chewable 81 MG TAB PO SCH (09:11)
[2022-08-01] MEDS: pyridOXINE 50 MG (B6) TAB PO SCH (09:11)
[2022-08-01] MEDS: Ascorbic Acid 500 mg Chewable Tablet PO SCH (09:11)
[2022-08-01] MEDS: Amlodipine 5 MG TAB PO SCH ×2 (09:11→20:37)
[2022-08-01] MEDS: Zinc Sulfate 220 MG CAP PO SCH (09:11)
[2022-08-01] MEDS: Cholecalciferol (Vitamin D3) 400 UNITS TAB PO SCH (09:12)
[2022-08-01] MEDS: hydrALAZINE 10 MG TAB PO SCH ×2 (10:28→20:38)
[2022-08-01] MEDS ORDERED: Piperacillin/Tazobactam 3.375 GM in Sodium Chloride 0.9% 100 ML IVPB SCH (17:00)
[2022-08-01] MEDS: Atorvastatin Calcium 20 MG TAB PO SCH (20:37)
[2022-08-01] MEDS: Famotidine 20 MG TAB PO SCH (20:37)
[2022-08-01] MEDS: Piperacillin/Tazobactam 3.375 GM in Sodium Chloride 0.9% 100 ML IVPB SCH (20:39)
[2022-08-02] MEDS: Carvedilol 3.125 MG TAB PO SCH ×2 (05:22→18:45)
[2022-08-02] MEDS: Piperacillin/Tazobactam 3.375 GM in Sodium Chloride 0.9% 100 ML IVPB SCH ×2 (05:22→15:54)
[2022-08-02] MEDS: Amlodipine 5 MG TAB PO SCH ×2 (05:45→20:01)
[2022-08-02] MEDS: hydrALAZINE 10 MG TAB PO SCH ×2 (05:45→20:00)
[2022-08-02 06:16] LABS: #Basophils 0.1 thou/uL (0.0-0.2); #Eosinphils 0.1 thou/uL (0.0-0.7); #Lymphocytes 1.4 thou/uL (1.20-3.40); #Monocytes 1.1 thou/uL (0.11-0.59); #Neutrophils 7.5 thou/uL (1.40-6.50); %Basophils 0.8 % (0.0-1.0); %Eosinophils 1.1 % (0.0-10.0); %Lymphocytes 13.4 % (21.0-51.0); %Monocytes 10.6 % (0.0-10.0); %Neutrophils 74.1 % (42.0-75.0); Hemoglobin 13.6 g/dL (14.0-18.0); Mean Corpuscular HGB CONC 32.5 g/dL (32.0-36.0); Mean Corpuscular Hemoglobin 29.7 pg (27.0-31.0); Mean Corpuscular Volume 91.4 fl (78.0-98.0); Mean Platelet Volume 7.7 fL (7.4-10.4); Platelet Count 168 thou/uL (130-400); RBC Distribution Width 12.6 % (11.5-14.5); Red Blood Cell (RBC) Count 4.58 mill/uL (4.70-6.10); White Blood Cell (WBC) Count 10.1 thou/uL (4.8-10.8)
[2022-08-02 07:06] LABS: Anion Gap 14 mmol/L (10-20); BUN (Urea Nitrogen) 23 mg/dL (8.4-25.7); CRP (Inflammatory) 27.86 mg/dL (= or < 0.5); Calc. Creatinine Clearance 40 mL/min (70-130); Calcium 8.7 mg/dL (7.8-10.44); Carbon Dioxide 22 mmol/L (23-31); Chloride 105 mmol/L (98-107); Estimated GFR 37; Glucose 112 mg/dL (83-110); Potassium 3.9 mmol/L (3.5-5.1); Sodium 137 mmol/L (136-145)
[2022-08-02] MEDS: Enoxaparin Sodium 40 MG/0.4 ML SYRINGE SC SCH (07:42)
[2022-08-02] MEDS: Ascorbic Acid 500 mg Chewable Tablet PO SCH (08:52)
[2022-08-02] MEDS: Cholecalciferol (Vitamin D3) 400 UNITS TAB PO SCH (08:52)
[2022-08-02] MEDS: Aspirin Chewable 81 MG TAB PO SCH (08:52)
[2022-08-02] MEDS: Zinc Sulfate 220 MG CAP PO SCH (08:52)
[2022-08-02] MEDS: pyridOXINE 50 MG (B6) TAB PO SCH (08:52)
[2022-08-02] MEDS ORDERED: Sodium Chloride 0.9% 100 ML ONE (13:35)
[2022-08-02] MEDS ORDERED: Piperacillin/Tazobactam 3.375 GM VIAL ONE (13:35)
[2022-08-02] MEDS ORDERED: Bupivacaine/Epinephrine 0.25% 30 ML VIAL ONE (14:45)
[2022-08-02] MEDS ORDERED: fentaNYL Citrate/PF 100 MCG/2 ML SYRINGE ONE (15:12)
[2022-08-02] MEDS ORDERED: Glycopyrrolate 0.2 MG/ML 5 ML SYRINGE ONE (15:41)
[2022-08-02] MEDS ORDERED: Rocuronium Bromide 10 MG/ML (10ML VIAL) ONE (15:41)
[2022-08-02] MEDS ORDERED: NEOSTIGMINE 3 MG/3 ML SYR 3 MG/3 ML SYRINGE ONE (15:41)
[2022-08-02] MEDS ORDERED: Ondansetron PF 4 MG/2 ML Vial ONE (15:41)
[2022-08-02] MEDS ORDERED: PROPOFOL 200 MG/20 ML VIAL ONE (15:41)
[2022-08-02] MEDS ORDERED: Dexamethasone 20 MG/5 ML VIAL ONE (15:41)
[2022-08-02] MEDS ORDERED: Promethazine HCl 25 MG/ML VIAL IM PRN (16:00)
[2022-08-02] MEDS ORDERED: Promethazine HCl 25 MG/ML VIAL IVPB PRN (16:00)
[2022-08-02] MEDS ORDERED: Ondansetron HCl/PF 4 MG/2 ML Vial IVP PRN (16:00)
[2022-08-02] MEDS ORDERED: FENTANYL 50 MCG/ML VIAL 50 MCG/ML VIAL ONE (16:38)
[2022-08-02] MEDS ORDERED: HYDROcodone/Acetaminophen 7.5/325 mg Tablet PO PRN (16:42)
[2022-08-02] MEDS ORDERED: Morphine 4 MG/ML VIAL SLOW IVP PRN (16:43)
[2022-08-02] MEDS: Atorvastatin Calcium 20 MG TAB PO SCH (20:01)
[2022-08-02] MEDS: Famotidine 20 MG TAB PO SCH (20:01)
[2022-08-03] MEDS: Zinc Sulfate 220 MG CAP PO SCH (08:22)
[2022-08-03] MEDS: Enoxaparin Sodium 40 MG/0.4 ML SYRINGE SC SCH (08:22)
[2022-08-03] MEDS: Amlodipine 5 MG TAB PO SCH (08:23)
[2022-08-03] MEDS: Aspirin Chewable 81 MG TAB PO SCH (08:23)
[2022-08-03] MEDS: Carvedilol 3.125 MG TAB PO SCH (08:25)
[2022-08-03] MEDS: hydrALAZINE 10 MG TAB PO SCH (08:25)
[2022-08-03] MEDS: pyridOXINE 50 MG (B6) TAB PO SCH (08:25)
[2022-08-03] MEDS: Ascorbic Acid 500 mg Chewable Tablet PO SCH (08:37)
[2022-08-03] MEDS: Cholecalciferol (Vitamin D3) 400 UNITS TAB PO SCH (08:37)
[2022-08-03] MEDS ORDERED: Polyethylene Glycol 3350 17 GM Packet PO PRN (10:54)
[2022-08-03 13:14] VITALS: BP 151/76; TEMP 97.9
== END 2022-08-03 15:46 | disposition home or self-care (01) | DRG 417 ==
LOC: ERS 15:39 → T4-B 20:41
PROVIDERS: ADMIT Hospitalist; ATTEND Hospitalist
PROC: 8E0ZXY6 Isolation (ICD-10-PCS; 2022-07-31)
PROC: 0FT44ZZ Resection of Gallbladder, Percutaneous Endoscopic Approach (ICD-10-PCS; principal; 2022-08-02)
DX: K80.00 Calculus of gallbladder with acute cholecystitis without obstruction (principal); J12.82 Pneumonia due to coronavirus disease 2019; U07.1 COVID-19; J96.01 Acute respiratory failure with hypoxia; E78.5 Hyperlipidemia, unspecified; N18.9 Chronic kidney disease, unspecified; I12.9 Hypertensive chronic kidney disease with stage 1 through stage 4 chronic kidney disease, or unspecified chronic kidney disease; Z28.21 Immunization not carried out because of patient refusal; Z98.890 Other specified postprocedural states; Z85.038 Personal history of other malignant neoplasm of large intestine; Z79.899 Other long term (current) drug therapy; Z79.82 Long term (current) use of aspirin; Z79.02 Long term (current) use of antithrombotics/antiplatelets; Z90.49 Acquired absence of other specified parts of digestive tract
CPT/HCPCS: 36415; 71045; 76705; 80048; 80053; 80076; 81001; 82553; 83605; 83690; 84484; 85025; 86140; 87040; 88304; 93005; 96365; 96368; C1713; J1100; J1170; J1650; J2270; J2405; J2543; J2704; J3490; U0002

== ENCOUNTER 2024-03-26 13:27 | Emergency (ER) | payer MEDICARE, OTHER ==
[2024-03-26 13:53] LABS: #Basophils 0.07 10x3/uL (0.0-0.2); %Basophils 0.5 % (0.0-1.0); %Eosinophils 0.7 % (0.0-10.0); %Lymphocytes 8.8 % (21.0-51.0); %Monocytes 10.7 % (0.0-10.0); %Neutrophils 78.6 % (42.0-75.0); Hematocrit 32.1 % (42.0-52.0); Hemoglobin 10.6 g/dL (14.0-18.0); Mean Corpuscular Hemoglobin 27.1 pg (27.0-31.0); Mean Corpuscular Volume 82.1 fL (78.0-98.0); Mean Platelet Volume 8.9 fL (7.4-10.4); Platelet Count 404 10x3/uL (130-400); RBC Distribution Width 15.7 % (11.5-14.5); Red Blood Cell (RBC) Count 3.91 mill/uL (4.70-6.10)
[2024-03-26 14:14] LABS: ALT (SGPT) 36 U/L (8-55); AST (SGOT) 77 U/L (5-34); Albumin 2.5 g/dL (3.4-4.8); Alkaline Phosphatase 227 U/L (40-110); Anion Gap 13 mmol/L (10-20); BUN (Urea Nitrogen) 35 mg/dL (8.4-25.7); Bilirubin, Total 0.7 mg/dL (0.2-1.2); Calc. Creatinine Clearance 0 mL/min (70-130); Carbon Dioxide 21 mmol/L (23-31); Chloride 102 mmol/L (98-107); Estimated GFR 30; Globulin 4.3 g/dL (2.4-3.5); Glucose 194 mg/dL (83-110); Protein, Total 6.8 g/dL (5.8-8.1); Sodium 132 mmol/L (136-145)
[2024-03-26 14:26] LABS: Troponin I 0.113 ng/mL (< 0.028)
[2024-03-26 15:05] LABS: Influenza A by NAA Not Detected (NotDetected); Influenza B by NAA Not Detected (NotDetected); SARS-CoV-2 NAA Rapid Test Not Detected (NotDetected)
[2024-03-26] MEDS ORDERED: Furosemide 20 MG (2 mL) VIAL ONE (16:19)
[2024-03-26] MEDS ORDERED: Sodium Chloride 0.9% 100 ML ONE (20:02)
[2024-03-26] MEDS ORDERED: cefTRIAXone (ROCEPHIN) 2 GM VIAL ONE (20:02)
[2024-03-26] MEDS ORDERED: Azithromycin 500 MG VIAL ONE (20:47)
== END 2024-03-26 21:01 | disposition short-term general hospital (02) ==
LOC: ERS 13:27
DX: J81.0 Acute pulmonary edema (principal); I11.0 Hypertensive heart disease with heart failure; I50.9 Heart failure, unspecified; R06.00 Dyspnea, unspecified; I25.2 Old myocardial infarction; E78.00 Pure hypercholesterolemia, unspecified; C18.9 Malignant neoplasm of colon, unspecified
CPT/HCPCS: 0240U; 71045; 80053; 83735; 83880; 84484; 85025; 93005; 96374; 96375; 99285; J0456; J0696; J1940; J3490